=== PATIENT | male | born 1995 | race Caucasian/White ===

== ENCOUNTER 2020-04-10 18:08 | Emergency (ER) | payer OTHER ==
[~2020-04-10] VITALS: Ht 193 cm; Wt 93.0 kg
[2020-04-10] MEDS ORDERED: LIDOCAINE-MPF 1%, 5ML INFIL ONE (18:30)
--- NOTE | 2020-04-10 20:17 | NUR ---
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
--- NOTE | 2020-04-10 20:20 | NUR ---
FIRST CONTACT WITH PT. 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 WOUND IS ON LEFT SIDE OF AREVALO ABOUT 1.5 IN IN LENGTH. GF HELD PRESSURE ON WAY TO ER, STATED IT HELPED, MINIMAL BLEEDING NOTED NOW, BANDAGE PRESENT. CAN SEE SUBCUTANEOUS FAT. PT STATES NO PAIN
[2020-04-10] MEDS ORDERED: LIDOCAINE-MPF 1%, 5ML ONE (20:33)
[2020-04-10] MEDS ORDERED: NEOSPORIN OINT. PKT 1 PACKET ONE (20:56)
[2020-04-10 21:40] VITALS: BP 121/80
== END 2020-04-10 21:42 | disposition home or self-care (01) ==
LOC: ED 21:35
DX: S81.811A Laceration without foreign body, right lower leg, initial encounter (principal); X58.XXXA Exposure to other specified factors, initial encounter; Y93.89 Activity, other specified; Y92.89 Other specified places as the place of occurrence of the external cause; Y99.8 Other external cause status
CPT/HCPCS: 12032; 99284

== ENCOUNTER 2020-04-20 15:12 | Emergency (ER) | payer OTHER ==
[~2020-04-20] VITALS: Ht 193 cm; Wt 94.6 kg
[2020-04-20 15:16] VITALS: BP 138/83
[2020-04-20] MEDS ORDERED: NEOSPORIN OINT. PKT 1 PACKET ONE (15:32)
== END 2020-04-20 15:37 | disposition home or self-care (01) ==
LOC: ED 15:30
DX: S71.111D Laceration without foreign body, right thigh, subsequent encounter (principal); X58.XXXD Exposure to other specified factors, subsequent encounter
CPT/HCPCS: 99282